=== PATIENT | male | born 1995 | race Caucasian/White ===

== ENCOUNTER 2022-01-11 14:15 | Observation (INO) | payer BC ==
[2022-01-11] MEDS ORDERED: EPINEPHRINE/PF 1 MG/ML AMP ONE (14:32)
[2022-01-11] MEDS ORDERED: DIPHENHYDRAMINE 50 MG/ML VIAL ONE ×2 (14:32→20:01)
[2022-01-11] MEDS ORDERED: ONDANSETRON 4 MG/2 ML VIAL ONE (14:32)
[2022-01-11] MEDS ORDERED: FAMOTIDINE 20 MG/2 ML VIAL IV ONE ×2 (14:33→20:02)
[2022-01-11] MEDS ORDERED: LIDOCAINE VISCOUS 2% SOLN 15 ML UDC ONE (14:33)
[2022-01-11] MEDS ORDERED: TRANEXAMIC ACID 1,000 MG in NA CHLORIDE 0.9% 50 ML IV ONE (15:00)
[2022-01-11] MEDS ORDERED: EPINEPHRINE INH 0.5 ML VIAL IH ONE (15:39)
--- NOTE | 2022-01-11 16:03 | RAD REPORT ---
EXAM DESCRIPTION: CT - Soft Tissue Neck W/Contr CLINICAL HISTORY: neck swelling COMPARISON: No comparisons TECHNIQUE All CT scans are performed using dose optimization technique as appropriate and may includ e automated exposure control or mA/KV adjustment according to patient size. FINDINGS: Nasopharyngeal tissues are normal in appearance. Fossa Rosenmller are normal. Parapharyngeal fat triangles are symmetric. Tongue base structures are normal. Multiple prominent lym ph nodes are present in the neck including both jugular chains as well as the left submandibular panchito on. Epiglottis and aryepiglottic folds are normal. Piriform sinuses are well aerated. The vocal cords are normal in appearance. Salivary glands are normal in appearance. Upper lung garrett are clear. Included intracranial contents are unremarkable. IMPRESSION: Prominent lymph nodes are seen in the neck and left submandibular region suggesting cerv ical lymphadenitis. This can be followed via physical exam findings or repeat CT after appropriate th erapy to ensure resolution.
--- NOTE | 2022-01-11 16:27 | ER ---
Nurse's Notes [facility] Name: Juwan Monroy Age: 26 yrs Sex: Male : 1995 Arrival Date: 01/11/2022 Time: 14:11 Bed 23 Private MD: Diagnosis: Angioedema Presentation: 01/11 14:15 Chief complaint: EMS states: pt went to urgent care today for throat swelling that mb9 caused difficulty speaking. Pt states "It felt like I had a ball in my mouth." Urgent care gave 125 mg of Solu-Medrol and EMS gave 0.3 of nebulized epi. Pt denies SOB or trouble breathing. Pt states he has runny nose and congestion since last Monday. Coronavirus screen: Vaccine status: Patient reports being unvaccinated. Ebola Screen: No symptoms or risks identified at this time. Initial Sepsis Screen: Does the patient meet any 2 criteria? No. Patient's initial sepsis screen is negative. Does the patient have a suspected source of infection? No. Patient's initial sepsis screen is negative. Risk Assessment: Do you want to hurt yourself or someone else? Patient reports no desire to harm self or others. Onset of symptoms was January 11, 2022. 14:15 Method Of Arrival: EMS: [facility] mb9 14:15 Acuity: JOSIAH 2 mb9 Triage Assessment: 19:00 Respiratory: Onset: The symptoms/episode began/occurred just prior to arrival, the pf1 patient has moderate shortness of breath. Historical: - Allergies: 14:22 No Known Allergies; mb9 - Home Meds: 14:22 valacyclovir 500 mg oral tab once daily [Active]; mb9 - PMHx: 14:24 None; mb9 - PSHx: 14:24 None; mb9 - Immunization history:: Adult Immunizations up to date. - Social history:: Smoking status: Patient denies any tobacco usage or history of. Patient uses alcohol, only on a social basis. Screenin:11 Abuse screen: Denies threats or abuse. Nutritional screening: No deficits noted. mb9 Tuberculosis screening: No symptoms or risk factors identified. Fall Risk None identified. Assessment: 14:15 General: Appears uncomfortable, Behavior is calm, cooperative, appropriate for age. mb9 Pain: Denies pain. Neuro: Nesbitt Agitation-Sedation Scale (RASS): 0 - Alert and Calm Level of Consciousness is awake, alert, obeys commands, Oriented to person, place, time, situation, Appropriate for age. 14:15 Cardiovascular: Denies chest pain, Heart tones S1 S2 present Rhythm is sinus mb9 tachycardia. Respiratory: Reports shortness of breath at rest Airway is patent Respiratory effort is even, unlabored, pt intermittently clearing throat Breath sounds are clear bilaterally. GI: Abdomen is flat, Bowel sounds present X 4 quads. Abd is soft and non tender X 4 quads. : No signs and/or symptoms were reported regarding the genitourinary system. EENT: Oral mucosa is moist. Throat is reddened uvula red and swollen. Derm: Skin is pink, warm \\T\\ dry. Rash noted that is red, raised, on right arm, left arm, right leg and left leg. Musculoskeletal: Range of motion: intact in all extremities. 14:30 Pain: Denies pain. Cardiovascular: Rhythm is regular. Respiratory: Airway is patent mb9 Respiratory effort is even, unlabored, Respiratory pattern is regular, symmetrical, Breath sounds are clear bilaterally. Respiratory: pt intermittently clearing throat Denies shortness of breath. EENT: Throat Uvula red and swollen. 15:12 Reassessment: Patient is alert, oriented x 3, equal unlabored respirations, skin aa5 warm/dry/pink. Pt sitting up in bed, pt reports pain to throat has improved. MD at bedside reevaluating pt. . 15:31 Neuro: Level of Consciousness is awake, alert, obeys commands, Oriented to person, mb9 place, time, situation, Appropriate for age. Respiratory: Airway is patent Respiratory effort is even, unlabored, Respiratory pattern is regular, symmetrical. EENT: sores noted to the hard palate . Throat is pink. 15:38 Reassessment: pt taken to CT via wheelchair. mb9 16:08 Reassessment: Patient states feeling better. pt denies SOB and states pain in throat is mb9 better. Pt AAOx4. 16:51 Reassessment: PT AAOx4. Pt denies SOB and pain in the throat. Airway is patent. No mb9 swelling noted to mouth and throat. 17:45 Reassessment: Patient denies pain at this time. Patient states feeling better. Patient mb9 states symptoms have improved. pt AAOx4. No swelling noted to mouth and throat. 18:32 Reassessment: Patient denies pain at this time. Patient states feeling better. Patient mb9 states symptoms have improved. no swelling noted to mouth or throat. 19:00 General: Appears in no apparent distress. comfortable, well groomed, well developed, pf1 Behavior is calm, cooperative, appropriate for age, quiet. 19:00 Pain: Complains of pain in patient C/O ulcers to inside mouth Pain currently is 2 out pf1 of 10 on a pain scale. Neuro: No deficits noted. Nesbitt Agitation-Sedation Scale (RASS): 0 - Alert and Calm Level of Consciousness is awake, alert, obeys commands, Oriented to person, place, time, situation. Cardiovascular: No deficits noted. Respiratory: No deficits noted. Breath sounds are clear bilaterally. GI: No deficits noted. : No deficits noted. EENT: No deficits noted. EENT: No deficits noted. Lesions noted. Throat is pink. Derm: Rash noted that is red, raised, on Patient has generalized rash. Patient C/O intermittent rash that is chronic. 19:10 Reassessment: Report given to oncoming nurse DULCE Gaston. mb9 Vital Signs: 14:15 BP 157 / 95; Pulse 104; Resp 16; Temp 98(TE); Pulse Ox 97% on R/A; Weight 81.65 kg (R); mb9 Height 5 ft. 4 in. (162.56 cm) (R); Pain 0/10; 14:15 BP 154 / 82; Pulse 99; Resp 20; Pulse Ox 98% on R/A; Pain 0/10; mb9 14:52 BP 147 / 84; Pulse 87; Resp 19; Pulse Ox 96% ; Pain 0/10; mb9 15:30 BP 136 / 67; Pulse 87; Resp 14; Pulse Ox 96% on R/A; Pain 0/10; mb9 16:08 BP 134 / 69; Pulse 84; Resp 20; Pulse Ox 100% on R/A; Pain 0/10; mb9 16:38 BP 134 / 69; Pulse 81; Resp 18; Pulse Ox 100% on R/A; Pain 0/10; mb9 17:46 BP 147 / 70; Pulse 81; Resp 18; Pulse Ox 96% on R/A; Pain 0/10; mb9 18:31 BP 135 / 65; Pulse 78; Resp 15; Pulse Ox 97% on R/A; Pain 0/10; mb9 19:33 BP 144 / 68; Pulse 84; Resp 18 S; Pulse Ox 95% on R/A; aa9 20:00 BP 128 / 63; Pulse 92; Resp 20; Temp 98.3; Pulse Ox 96% on R/A; Pain 2/10; pf1 14:15 Body Mass Index 30.90 (81.65 kg, 162.56 cm) mb9 ED Course: 14:11 Patient arrived in ED. aa5 14:11 Arm band placed on. mb9 14:11 Placed in gown. Bed in low position. Call light in reach. Side rails up X 1. mb9 14:11 Maintain EMS IV. Dressing intact. Good blood return noted. Site clean \\T\\ dry. Gauge \\T\\ mb 9 site: 20 gauge to left AC. 14:14 Vishnu Dumas MD is Attending Physician. jr11 14:15 Virginia Beltran RN is Primary Nurse. mb9 14:22 Triage completed. mb9 15:53 Soft Tissue Neck W/Contr In Process Unspecified. EDMS 16:26 Barak García is Hospitalizing Provider. kb 16:51 SARS-COV-2 Antigen Rapid Sent. mb9 19:30 No provider procedures requiring assistance completed. pf1 19:30 IV is patent, Flushed left antecubital. pf1 01/12 00:30 Patient admitted, IV remains in place. aa9 Administered Medications: 01/11 14:30 Drug: EPINEPHrine 1mg/mL 1:1,000 0.3 mg Route: IM; Site: left deltoid; mb9 15:34 Follow up: Response: No adverse reaction mb9 14:31 Drug: Viscous Lidocaine Liquid (4 %) 10 ml Route: Mucous Membrane; mb9 15:34 Follow up: Response: No adverse reaction mb9 14:32 Drug: Zofran (Ondansetron) 4 mg Route: IVP; Site: left antecubital; mb9 15:34 Follow up: Response: No adverse reaction mb9 14:36 Drug: Pepcid (famotidine) 20 mg Route: IVP; Site: left antecubital; mb9 15:34 Follow up: Response: No adverse reaction mb9 14:38 Drug: Benadryl (diphenhydrAMINE) 50 mg Route: IVP; Site: left antecubital; mb9 15:34 Follow up: Response: No adverse reaction mb9 15:12 Drug: Tranexamic Acid 1000 mg Route: IV; Rate: calculated rate; Site: left antecubital; aa5 16:07 Drug: Racemic EPINPHrine 0.5 ml Route: Inhalation; mb9 16:38 Follow up: Response: No adverse reaction mb9 Medication: 15:36 VIS not applicable for this client. mb9 Outcome: 16:26 Decision to Hospitalize by Provider. kb 01/12 00:30 Admitted to ER Hold. Please see [facility] for further documentation. aa9 Condition: stable Instructed on the need for admit. 09:43 Patient left the ED. ap3 Signatures: Dispatcher [employer] EDMS Tabitha Mack, MANUFACTURING SHIFT SUPERVISOR-C MANUFACTURING SHIFT SUPERVISOR-Lanny Hernandez RN RN aa5 Annette Linares RN RN ap3 Vishnu Dumas MD MD jr11 Valentina John RN RN aa9 Virginia Beltran RN RN mb9 Cris rodriguez RN RN pf1
--- NOTE | 2022-01-11 16:27 | EDPHYS ---
Physician Documentation [facility] Name: Juwan Monroy Age: 26 yrs Sex: Male : 1995 Arrival Date: 01/11/2022 Time: 14:11 Bed 23 Private MD: ED Physician Vishnu Dumas HPI: 01/11 14:22 This 26 yrs old Male presents to ER via Unassigned with complaints of FB sensation to jr11 posterior oropharynx . 14:22 The patient has shortness of breath no dyspnea. Onset: The symptoms/episode jr11 began/occurred today, within 1hr. The patient's shortness of breath has no apparent modifying factors. Associated signs and symptoms: Pertinent negatives: chest pain, diaphoresis, dizziness, fever, loss of consciousness. Severity of symptoms: At their worst the symptoms were moderate in the emergency department the symptoms are worse. Pt was seen at and sent to ED for posterior OP edema, no pain. Historical: - Allergies: 14:22 No Known Allergies; mb9 - Home Meds: 14:22 valacyclovir 500 mg oral tab once daily [Active]; mb9 - PMHx: 14:24 None; mb9 - PSHx: 14:24 None; mb9 - Immunization history:: Adult Immunizations up to date. - Social history:: Smoking status: Patient denies any tobacco usage or history of. Patient uses alcohol, only on a social basis. ROS: 14:22 All other systems are negative. jr11 Exam: 14:22 Constitutional: This is a well developed, well nourished patient who is awake, alert, jr11 and in no acute distress. Head/Face: Normocephalic, atraumatic. Eyes: Extra-ocular motions intact. Lids and lashes normal. Conjunctiva and sclera are non-icteric and not injected. Cornea within normal limits. Periorbital areas with no swelling, redness, or edema. ENT: Uvula and R half of soft pallate with edema, no stridor Chest/axilla: Normal chest wall appearance and motion. Nontender with no deformity. No lesions are appreciated. Cardiovascular: Regular rate and rhythm with a normal S1 and S2. No gallops, murmurs, or rubs. Normal PMI, no JVD. No pulse deficits. Respiratory: Lungs have equal breath sounds bilaterally, clear to auscultation and percussion. No rales, rhonchi or wheezes noted. No increased work of breathing, no retractions or nasal flaring. Abdomen/GI: Soft, non-tender, with normal bowel sounds. No distension or tympany. No guarding or rebound. No evidence of tenderness throughout. Back: No spinal tenderness. No costovertebral tenderness. Full range of motion. Skin: Warm, dry with normal turgor. Normal color with no rashes, no lesions, and no evidence of cellulitis. MS/ Extremity: Pulses equal, no cyanosis. Neurovascular intact. Full, normal range of motion. Neuro: Awake and alert, GCS 15, oriented to person, place, time, and situation. No gross motor or sensory deficits. Vital Signs: 14:15 BP 157 / 95; Pulse 104; Resp 16; Temp 98(TE); Pulse Ox 97% on R/A; Weight 81.65 kg (R); mb9 Height 5 ft. 4 in. (162.56 cm) (R); Pain 0/10; 14:15 BP 154 / 82; Pulse 99; Resp 20; Pulse Ox 98% on R/A; Pain 0/10; mb9 14:52 BP 147 / 84; Pulse 87; Resp 19; Pulse Ox 96% ; Pain 0/10; mb9 15:30 BP 136 / 67; Pulse 87; Resp 14; Pulse Ox 96% on R/A; Pain 0/10; mb9 16:08 BP 134 / 69; Pulse 84; Resp 20; Pulse Ox 100% on R/A; Pain 0/10; mb9 16:38 BP 134 / 69; Pulse 81; Resp 18; Pulse Ox 100% on R/A; Pain 0/10; mb9 17:46 BP 147 / 70; Pulse 81; Resp 18; Pulse Ox 96% on R/A; Pain 0/10; mb9 18:31 BP 135 / 65; Pulse 78; Resp 15; Pulse Ox 97% on R/A; Pain 0/10; mb9 19:33 BP 144 / 68; Pulse 84; Resp 18 S; Pulse Ox 95% on R/A; aa9 20:00 BP 128 / 63; Pulse 92; Resp 20; Temp 98.3; Pulse Ox 96% on R/A; Pain 2/10; pf1 14:15 Body Mass Index 30.90 (81.65 kg, 162.56 cm) mb9 MDM: 14:14 Patient medically screened. jr11 14:22 Differential diagnosis: angioedema histamine vs bradykinin, will trial as histamine and jr11 also give TXA. Data reviewed: vital signs, nurses notes. 14:33 ED course: 15 min re-check is unchanged . jr11 14:45 ED course: 30 min in - all meds in, 245pm, no change in exam, no dyspnea. jr11 15:32 ED course: exam unchanged. [facility] 01/11 16:17 Order name: SARS-COV-2 Antigen Rapid; Complete Time: 18:20 [facility] 01/11 17:28 Order name: Urinalysis EDDE 01/11 17:28 Order name: Basic Metabolic Panel EDDE 01/11 17:28 Order name: Basic Metabolic Panel EDDE 01/11 17:28 Order name: CBC with Automated Diff EDDE 01/11 17:28 Order name: CBC with Automated Diff EDDE 01/11 15:36 Order name: Soft Tissue Neck W/Contr; Complete Time: 16:05 EDDE 01/11 19:04 Order name: Urine Dipstick-Ancillary EDMS 01/11 17:25 Order name: CONS Physician Consult EDDE 01/11 17:28 Order name: Regular EDMS Administered Medications: 14:30 Drug: EPINEPHrine 1mg/mL 1:1,000 0.3 mg Route: IM; Site: left deltoid; mb9 15:34 Follow up: Response: No adverse reaction mb9 14:31 Drug: Viscous Lidocaine Liquid (4 %) 10 ml Route: Mucous Membrane; mb9 15:34 Follow up: Response: No adverse reaction mb9 14:32 Drug: Zofran (Ondansetron) 4 mg Route: IVP; Site: left antecubital; mb9 15:34 Follow up: Response: No adverse reaction mb9 14:36 Drug: Pepcid (famotidine) 20 mg Route: IVP; Site: left antecubital; mb9 15:34 Follow up: Response: No adverse reaction mb9 14:38 Drug: Benadryl (diphenhydrAMINE) 50 mg Route: IVP; Site: left antecubital; mb9 15:34 Follow up: Response: No adverse reaction mb9 15:12 Drug: Tranexamic Acid 1000 mg Route: IV; Rate: calculated rate; Site: left antecubital; aa5 16:07 Drug: Racemic EPINPHrine 0.5 ml Route: Inhalation; mb9 16:38 Follow up: Response: No adverse reaction mb9 Disposition Summary: 01/11/22 16:26 Hospitalization Ordered Hospitalization Status: Observation kb Provider: Barak García Condition: Stable kb Problem: new kb Symptoms: are unchanged kb Bed/Room Type: Standard kb Location: [facility] ER HOLD(01/12/22 09:06) Room Assignment: ERHOLD-(01/12/22 09:06) iw Diagnosis - Angioedema kb Forms: - Medication Reconciliation Form kb - SBAR form kb Signatures: Dispatcher [employer] EDMS Tabitha Mack, VALE-C OPERATION SPECIALIST-Ckb Diamond Marin Irene, RN RN iw Lanny Morocho RN RN aa5 Camelia Scott RN RN cg Rosillo, Jose, MD MD jr Virginia Beltran, RN RN mb9 Corrections: (The following items were deleted from the chart) 15:36 15:30 CT-SOFT TISSUE NECK W/O CONTR ordered. EDMS EDDE 20:44 16:26 Telemetry/MedSurg (observation) kb 20:44 16:26 kb 01/12 07:51 01/11 20:44 [facility] ER HOLD bd 01/12 07:51 01/11 20:44 ERHOLD- cg bd 01/12 09:06 07:51 Telemetry/MedSurg (observation) bd iw 09: 07:51 412 bd iw
[2022-01-11] MEDS ORDERED: HYDROCODONE/APAP 5/325 MG TAB PO PRN (17:26)
[2022-01-11] MEDS ORDERED: ONDANSETRON 4 MG/2 ML VIAL IV PRN (17:26)
[2022-01-11] MEDS ORDERED: ACETAMINOPHEN 325 MG TABLET PO PRN (17:26)
--- NOTE | 2022-01-11 17:31 | P.HP ---
Certification for Inpatient Patient admitted to: Observation With expected LOS: <2 Midnights Patient will require the following post-hospital care: None Practitioner: I am a practitioner with admitting privileges, knowledge of patient current condition, hospital course, and medical plan of care. Services: Services provided to patient in accordance with Admission requirements found in Title 42 Section 412.3 of the Code of Federal Regulations Patient History Date of Service: 01/11/22 Reason for admission: SOB, dysphagia History of Present Illness: Patient is a 26-year-old male with a past medical history significant for bilateral upper extremity rash since childhood who presents with complaint of foreign body sensation in his throat onset today. Patient reported that he felt as if something was stuck in his throat and patient started having shortness of breath and difficulty swallowing. Patient denies any other signs or symptoms. Symptoms are aggravated or relieved by nothing. Patient decided to present to the hospital for medical evaluation. Of note, patient reported that rash spread to his buccal cavity 2 years ago but has not had any problems other than periodic mouth pain. Allergies No Known Allergies Allergy (Unverified 01/11/22 14:36) Home medications list reviewed: No - Past Medical/Surgical History -: Chronic bilateral upper extremity rash. Past Surgical History: Reviewed- Non-Contributory - Family History Family History: Reviewed- Non-Contributory - Social History Smoking Status: Never smoker Alcohol use: Yes CD- Drugs: No Caffeine use: No Place of Residence: Home Review of Systems General: Unremarkable Eyes: Unremarkable ENT: Throat Swelling, Other (Dysphagia) Respiratory: Shortness of Breath Cardiovascular: Unremarkable Gastrointestinal: Unremarkable Genitourinary: Unremarkable Musculoskeletal: Unremarkable Integumentary: Unremarkable Neurological: Unremarkable Lymphatics: Unremarkable Physical Examination - Physical Exam General: Alert, In no apparent distress, Oriented x3, Cooperative HEENT: Atraumatic, PERRLA, Mucous membr. moist/pink, EOMI, Sclerae nonicteric Neck: Supple, 2+ carotid pulse no bruit, No LAD, Without JVD or thyroid abnormality Respiratory: Clear to auscultation bilaterally, Normal air movement Cardiovascular: No edema, Regular rate/rhythm, Normal S1 S2 Capillary refill: <2 Seconds Gastrointestinal: Normal bowel sounds, Non-distended, No tenderness Musculoskeletal: No clubbing, No swelling, No contractures, No tenderness Integumentary: No rashes, No breakdown, No significant lesion, No tenderness/swelling Neurological: Normal gait, Normal speech, Normal strength at 5/5 x4 extr, Normal tone, Normal affect Lymphatics: No axilla or inguinal lymphadenopathy Assessment and Plan - Plan --Cervical lymphadenitis. CT imaging indicates prominent lymph nodes are seen in the neck and left submandibular region suggesting cervical lymphadenitis. ENT MD consulted. Will await further recommendations. -- Angioedema. Patient given epinephrine, Benadryl, Pepcid and lidocaine in the ER. Patient placed on steroids, H1/H2 blockers. Further management per ENT MD. -- Shortness of breath. Likely secondary to cervical lymphadenitis. Patient reported resolution of after treatment in the ER. Continue supportive care. -- Dysphagia. Likely secondary to cervical lymphadenitis. Patient reports improvement in symptoms after treatment in the ER. Continue supportive care. --Upper extremity rash. Patient reported that he has had rash in his upper extremity since he was 6 years old. Continue home medication. --Acute pain. We will manage pain with current pain medication regimen. --DVT prophylaxis with Lovenox subQ. Discharge Plan: Home Plan to discharge in: 48 Hours - Advance Directives Does patient have a Living Will: No Does patient have a Durable POA for Healthcare: No - Code Status/Comfort Care Code Status Assessed: Yes Physician Review: Patient Assessed, Agree with Above Assessment and Plan
[2022-01-11 17:49] LABS: SARS-CoV-2 Antigen Rapid Res Negative (Negative)
[2022-01-11 18:54] VITALS: BMI 30.9
[2022-01-11 19:04] LABS: Urine Blood Negative (Negative); Urine Glucose Negative (Negative); Urine Protein Negative (Negative)
[2022-01-11] MEDS ORDERED: NA CHLORIDE 0.9% 50 ML IV ONE (20:01)
[2022-01-11] MEDS ORDERED: TRANEXAMIC ACID 1,000 MG/10 ML VIAL IV ONE (20:02)
[2022-01-11] MEDS ORDERED: DIPHENHYDRAMINE 50 MG/ML VIAL IV SCH (21:00)
[2022-01-11] MEDS ORDERED: FAMOTIDINE 20 MG/2 ML VIAL IV SCH (21:00)
[2022-01-12] MEDS ORDERED: METHYLPREDNISOLONE 40 MG INJ IV SCH (01:00)
[2022-01-12] MEDS ORDERED: METHYLPREDNISOLONE 40 MG INJ ONE ×2 (02:08→08:09)
[2022-01-12 02:50] LABS: Absolute Lymphocytes (CBC) 0.9 K/uL (0.7-4.9); MCV 89.9 fL (80-100); MPV 7.4 fL (7.6-11.3); RBC Red Blood Cell Count 5.23 M/uL (4.33-5.43)
[2022-01-12 03:09] LABS: Potassium 4.4 mmol/L (3.5-5.1)
[2022-01-12 05:32] VITALS: BP 113/56; TEMP 98.8
[2022-01-12] MEDS ORDERED: ENOXAPARIN 40 MG/0.4 ML SQ ONE (08:09)
[2022-01-12] MEDS ORDERED: FAMOTIDINE 20 MG/2 ML VIAL IV ONE (08:09)
[2022-01-12] MEDS ORDERED: DIPHENHYDRAMINE 50 MG/ML VIAL ONE (08:09)
[2022-01-12] MEDS ORDERED: ENOXAPARIN 40 MG/0.4 ML SQ SCH (09:00)
[2022-01-12 09:58] VITALS: O2SAT 96
--- NOTE | 2022-01-12 12:13 | P.DS ---
Admission Date: 01/11/22 Discharge Date: 01/12/22 Disposition: ROUTINE DISCHARGE Reason for Admission: SOB, dysphagia - Problems (1) Angioedema Status: Acute (2) Erythema multiforme Status: Acute (3) Acute cervical adenitis Status: Acute Brief History of Present Illness: Patient is a 26-year-old male with a past medical history significant for bilateral upper extremity rash since childhood who presents with complaint of foreign body sensation in his throat onset today. Patient reported that he felt as if something was stuck in his throat and patient started having shortness of breath and difficulty swallowing. He decided to present to the hospital for medical evaluation. Of note, patient reported that rash spread to his buccal cavity 2 years ago but has not had any problems other than periodic mouth pain. CT soft tissue of the neck showed cervical lymphadenitis. Patient was given Benadryl, Pepcid, IV steroid and hospitalized for further management. Hospital Course: Was placed under observation on the medical floor. Patient's symptoms improved overnight, his shortness of breath resolved, the foreign body sensation in his throat and dysphagia resolved. 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 He takes prednisone during flares and he is on valacyclovir to reduce recurrence. Patient prescribed prednisone 20 mg for a few days. Vital Signs/Physical Exam: Temp Pulse Resp BP Pulse Ox 98.8 F 61 15 113/56 L 94 01/12/22 04:00 01/12/22 04:00 01/12/22 04:00 01/12/22 04:00 01/12/22 04:00 General: Alert, In no apparent distress, Oriented x3 HEENT: Mucous membr. moist/pink, Other (No exudates or erythema or significant swelling in the throat area) Neck: JVD not distended Respiratory: Clear to auscultation bilaterally, Normal air movement Cardiovascular: Regular rate/rhythm, Normal S1 S2 Gastrointestinal: Normal bowel sounds, Soft and benign, Non-distended, No tenderness Musculoskeletal: No swelling Integumentary: Other (Erythematous maculopapular rashes on bilateral upper and lower limbs.) Neurological: Normal speech, Normal strength at 5/5 x4 extr Laboratory Data at Discharge: WBC 11.00 K/uL (4.3-10.9) H 01/12/22 02:18 Hgb 16.0 g/dL (13.6-17.9) 01/12/22 02:18 Hct 47.0 % (39.6-49.0) 01/12/22 02:18 Plt Count 270 K/uL (152-406) 01/12/22 02:18 Sodium 136 mmol/L (136-145) 01/12/22 02:18 Potassium 4.4 mmol/L (3.5-5.1) 01/12/22 02:18 BUN 15 mg/dL (7-18) 01/12/22 02:18 Creatinine 0.98 mg/dL (0.55-1.3) 01/12/22 02:18 Glucose 157 mg/dL (74-106) H 01/12/22 02:18 Home Medications: predniSONE [Deltasone] 20 mg PO DAILY #5 tab 01/12/22 New Medications: predniSONE [Deltasone] 20 mg PO DAILY #5 tab Diet: AHA Followup: NONE,NONE [Primary Care Provider] -
== END 2022-01-12 09:41 | disposition home or self-care (01) ==
LOC: ER 14:15 → ERHOLD 17:22
PROVIDERS: ADMIT Internal Medicine; ATTEND Internal Medicine
DX: T78.3XXA Angioneurotic edema, initial encounter (principal); I88.8 Other nonspecific lymphadenitis; L51.9 Erythema multiforme, unspecified; R21 Rash and other nonspecific skin eruption; R52 Pain, unspecified; L04.0 Acute lymphadenitis of face, head and neck; R09.89 Other specified symptoms and signs involving the circulatory and respiratory systems; Z20.822 Contact with and (suspected) exposure to COVID-19
CPT/HCPCS: 36415; 81003; 70491; 87811; Q9967; J0171; J1200 ×2; J2405; 80048; 85025; G0378; J1650; J2920